=== PATIENT | male | born 1960 | race Caucasian/White ===

== ENCOUNTER 2017-04-05 21:10 | Observation (INO) | payer BC, OTHER ==
[~2017-04-05] VITALS: Ht 172.7 cm; Wt 86.0 kg
[2017-04-05 22:45] VITALS: BP 155/114; PULSE 67; TEMP 37.1; O2SAT 94; Ht 172.7 cm; Wt 86.0 kg
[2017-04-05] MEDS ORDERED: LORAZEPAM 2 MG/ML 1 ML VIAL IV PRN (23:15)
[2017-04-05] MEDS ORDERED: SODIUM CHLORIDE 0.9% 1000ML 1,000 ML IV ONE (23:15)
[2017-04-05] MEDS ORDERED: IV FLUIDS COMPLETED PRN (23:15)
[2017-04-05] MEDS ORDERED: ONDANSETRON INJ 2 MG/ML 2 ML VIAL IV PRN (23:15)
[2017-04-05] MEDS ORDERED: OXYCODONE/ACETAMINOPHEN 5-325 TAB PO PRN (23:15)
[2017-04-05] MEDS ORDERED: ACETAMINOPHEN 325 MG TAB PO PRN (23:15)
[2017-04-05] MEDS ORDERED: PATIENT'S ALLERGY INFO NEEDS ENTERED SCH (23:15)
[2017-04-05] MEDS ORDERED: LORAZEPAM INJ 0.5 MG in SYRINGE 0.75 ML IV PRN (23:30)
[2017-04-05] MEDS ORDERED: INFLUENZA VIRUS QUAD VACCINE 0.5 ML SYR IM. ONE (23:45)
[2017-04-05] MEDS ORDERED: INFLUENZA ADMINISTRATION CHARGE ONE (23:45)
[2017-04-06] MEDS ORDERED: LAMOTRIGINE PO ONE ×2 (01:00)
[2017-04-06] MEDS ORDERED: ATEN50TA8 PO (02:01)
[2017-04-06] MEDS ORDERED: LAMO150T32 PO (02:02)
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
[2017-04-06] MEDS ORDERED: LORAZEPAM INJ 1 MG in SYRINGE 0.5 ML IV PRN (02:30)
[2017-04-06 06:45] LABS: BASO % 0.3 %; BASO ABS # 0.02 K/uL (0-0.2); COMPLETE YES; EOS % 1.6 %; HEMATOCRIT 49.7 % (42-52); IG% 0.4 %; LYMPH % 17.5 %; LYMPH ABS # 1.34 K/uL (1.2-3.4); MEAN CELL VOLUME 84.1 fL (80-100); MEAN CORPUSCULAR HEMOGLOBIN 29.6 pg (25-34); MEAN CORPUSCULAR HGB CONC 35.2 g/dl (32-36); MEAN PLATELET VOLUME 9.3 fL (7.4-10.4); MONO % 8.8 %; NEUT % 71.4 %; PLATELET COUNT 210 K/uL (130-400); RED BLOOD COUNT 5.91 M/uL (4.7-6.1); WHITE BLOOD COUNT 7.64 K/uL (4.8-10.8)
[2017-04-06 06:52] LABS: INR 1.1 (0.9-1.1); PROTHROMBIN TIME (PATIENT) 11.4 SECONDS (9.0-12.0)
[2017-04-06 07:09] LABS: BUN/CREATININE RATIO 12.4 (10-20); CREATININE 1.2 mg/dl (0.60-1.40); MAGNESIUM 2.1 mg/dl (1.8-2.4); POTASSIUM 4.1 mmol/L (3.5-5.1)
[2017-04-06 07:20] LABS: THYROID STIMULATING HORMONE 1.95 uIu/ml (0.300-4.500)
[2017-04-06 08:00] VITALS: BP 151/96; PULSE 60; TEMP 36.9; O2SAT 95
[2017-04-06] MEDS: ASPIRIN 81 MG ECTAB PO SCH (08:02)
[2017-04-06] MEDS: MULTIVITAMIN TAB PO SCH (08:02)
[2017-04-06] MEDS: LAMOTRIGINE PO SCH ×4 (08:04→20:34)
[2017-04-06] MEDS: HEPARIN SOD 5000 UNIT/0.5 ML CARP SQ SCH ×2 (08:11→16:12)
[2017-04-06 08:12] LABS: URINE APPEARANCE CLEAR (CLEAR); URINE BILIRUBIN NEG (NEG); URINE COLOR YELLOW; URINE NITRITE NEG (NEG); URINE PH 6.5 (4.5-7.5); URINE SPECIFIC GRAVITY 1.015 (1.000-1.030); UROBILINOGEN NEG (NEG); ZZUR CULT IF INDIC CLEAN CATCH NO
[2017-04-06 08:16] LABS: MANUAL MICROSCOPIC REQUIRED? NO; REVIEW REQ? NO
[2017-04-06 08:38] LABS: BENZODIAZEPINE, URINE NEG (NEG); COCAINE,URINE NEG (NEG); PHENCYCLIDINE, URINE NEG (NEG)
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
--- NOTE | 2017-04-06 12:17 | DIAGNOSTIC IMAGING REPORT ---
BRAIN COMBO FOR SEIZURE CLINICAL HISTORY: 57 years-old Male presenting with seizure disorder, "spaced out" yesterday, unresponsive at the time, pain radiating down the arm, possible history of stroke. TECHNIQUE: Multisequence, multiplanar MR imaging of the brain was performed before and after the administration of intravenous contrast. IV contrast: 8.5 mL of Gadavist. COMPARISON: 03/22/2006. FINDINGS: Ventricles and sulci normal in size. Few scattered foci of T2/FLAIR hyperintensity in the subcortical white matter, nonspecific. No abnormality of the temporal lobes. No mass effect or midline shift. No restricted diffusion to suggest acute ischemia. No hemorrhage. No extra-axial fluid collection. T2 skull base flow voids preserved. No abnormal parenchymal enhancement. Bone marrow signal intensity within the calvarium within normal limits. Incidental note made of Tornwaldt cyst. IMPRESSION: 1. No acute intracranial pathology. No abnormal enhancement. 2. Few scattered foci of T2/FLAIR hyperintensity in the subcortical white matter is nonspecific and could be seen in the setting of age-related change, chronic migraines, or chronic small vessel ischemic change among other etiologies. Electronically signed by: Edmond Reynolds M.D. 04/06/2017 12:16 PM Dictated Date/Time: 04/06/2017 12:10 PM
--- NOTE | 2017-04-06 13:07 | Progress Note ---
Internal Med Progress Note Date of Service: Apr 06, 2017. Provider Documentation: SUBJECTIVE: Seen and examined at bedside Feels well No seizure activity since hospitalization Denies CP/SOB/Dizziness/Headache/Weakness OBJECTIVE: Vital Signs-as noted below Physical Exam: Vitals signs as noted above General Appearance:Moderately built and nourished, no apparent distress Head: normocephalic, Atraumatic Eyes: normal inspection, EOMI, PERRL Neck: supple, Trachea midline Respiratory/Chest: Normal breath sounds, CTA Cardiovascular: S1, S2, No murmur Abdomen/GI:Soft, Non tender, Bowel sounds present Extremities/Musculoskelatal:normal inspection, no edema Neurologic/Psych:AAOX3, grossly no focal neurological deficits Skin: normal color, warm Lab data as noted below. ASSESSMENT & PLAN: Likely Partial complex Seizures H/O seizures disorder: No seizures since many years Continue Lamictal at increased dose:175 mg BID Appreciate Neurology Input Ativan PRN MRI brain:No acute intracranial pathology EEG: pending Monitor SERGIO: Resolved Cr:1.4 >>1.2 S/P IVF H/O TIA: Continue Aspirin Hypertension: Continue home meds monitor DVT Px: Heparin SQ Code Status: Full code. PROCEDURES: MRI Brain: 1. No acute intracranial pathology. No abnormal enhancement. 2. Few scattered foci of T2/FLAIR hyperintensity in the subcortical white matter is nonspecific and could be seen in the setting of age-related change, chronic migraines, or chronic small vessel ischemic change among other etiologies. Vital Signs: Date Time Temp Pulse Resp B/P (MAP) Pulse Ox O2 Delivery O2 Flow Rate FiO2 04/06/17 15:10 36.6 60 18 137/83 (101) 93 Room Air 04/06/17 08:00 Room Air 04/06/17 08:00 36.9 60 18 151/96 (114) 95 Room Air 04/05/17 22:45 37.1 67 16 155/114 94 Room Air Lab Results: Results Past 24 Hours Test 04/05/17 23:49 04/06/17 05:45 04/06/17 06:10 Range/Units Urine Color YELLOW Urine Appearance CLEAR CLEAR Urine pH 6.5 4.5-7.5 Urine Specific [place] 1.015 1.000-1.030 Urine Protein NEG NEG Urine Glucose (UA) NEG NEG Urine Ketones NEG NEG Urine Occult Blood NEG NEG Urine Nitrite NEG NEG Urine Bilirubin NEG NEG Urine Urobilinogen NEG NEG Urine Leukocyte Esterase NEG NEG Urine Opiates Screen NEG NEG Urine Methadone, Qualitative NEG NEG Urine Barbiturates NEG NEG Urine Phencyclidine (PCP) Level NEG NEG Ur Amphetamine/Methamphetamine NEG NEG MDMA (Ecstasy) Screen NEG NEG Urine Benzodiazepines Screen NEG NEG Urine Cocaine Metabolite NEG NEG Urine Marijuana (THC) NEG NEG White Blood Count 7.64 4.8-10.8 K/uL Red Blood Count 5.91 4.7-6.1 M/uL Hemoglobin 17.5 14.0-18.0 g/dL Hematocrit 49.7 42-52 % Mean Corpuscular Volume 84.1 80-100 fL Mean Corpuscular Hemoglobin 29.6 25-34 pg Mean Corpuscular Hemoglobin Concent 35.2 32-36 g/dl Platelet Count 210 130-400 K/uL Mean Platelet Volume 9.3 7.4-10.4 fL Neutrophils (%) (Auto) 71.4 % Lymphocytes (%) (Auto) 17.5 % Monocytes (%) (Auto) 8.8 % Eosinophils (%) (Auto) 1.6 % Basophils (%) (Auto) 0.3 % Neutrophils # (Auto) 5.46 1.4-6.5 K/uL Lymphocytes # (Auto) 1.34 1.2-3.4 K/uL Monocytes # (Auto) 0.67 0.11-0.59 K/uL Eosinophils # (Auto) 0.12 0-0.5 K/uL Basophils # (Auto) 0.02 0-0.2 K/uL RDW Standard Deviation 39.6 36.4-46.3 fL RDW Coefficient of Variation 13.0 11.5-14.5 % Immature Granulocyte % (Auto) 0.4 % Immature Granulocyte # (Auto) 0.03 0.00-0.02 K/uL Prothrombin Time 11.4 9.0-12.0 SECONDS Prothromb Time International Ratio 1.1 0.9-1.1 Sodium Level 143 136-145 mmol/L Potassium Level 4.1 3.5-5.1 mmol/L Chloride Level 108 98-107 mmol/L Carbon Dioxide Level 29 21-32 mmol/L Anion Gap 6.0 3-11 mmol/L Blood Urea Nitrogen 15 7-18 mg/dl Creatinine 1.20 0.60-1.40 mg/dl Est Creatinine Clear Calc Drug Dose 70.7 ml/min Estimated GFR () 76.3 Estimated GFR (Non- 65.8 BUN/Creatinine Ratio 12.4 10-20 Random Glucose 91 70-99 mg/dl Calcium Level 9.0 8.5-10.1 mg/dl Magnesium Level 2.1 1.8-2.4 mg/dl Thyroid Stimulating Hormone (TSH) 1.950 0.300-4.500 uIu/ml
[2017-04-06 15:10] VITALS: BP 137/83; PULSE 60; TEMP 36.6; O2SAT 93
[2017-04-06 23:54] VITALS: BP 148/89; PULSE 54; TEMP 36.6; O2SAT 99
[2017-04-07] VITALS: O2SAT 99
[2017-04-07] MEDS: HEPARIN SOD 5000 UNIT/0.5 ML CARP SQ SCH ×3 (00:48→16:00)
[2017-04-07 07:28] VITALS: BP 144/87; PULSE 56; TEMP 36.6; O2SAT 98
[2017-04-07 07:41] LABS: BUN/CREATININE RATIO 12.1 (10-20); CALCIUM 9.5 mg/dl (8.5-10.1); CREATININE 1.2 mg/dl (0.60-1.40); MAGNESIUM 1.9 mg/dl (1.8-2.4); POTASSIUM 4.3 mmol/L (3.5-5.1)
[2017-04-07] MEDS: MULTIVITAMIN TAB PO SCH (07:54)
[2017-04-07] MEDS: ASPIRIN 81 MG ECTAB PO SCH (07:54)
[2017-04-07] MEDS: LAMOTRIGINE PO SCH ×2 (08:37)
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
--- NOTE | 2017-04-07 14:18 | Progress Note ---
Internal Med Progress Note Date of Service: Apr 07, 2017. Provider Documentation: SUBJECTIVE: Seen and examined at bedside Doing well No recurrence of symptoms or seizure activity since hospitalization Denies CP/SOB/Dizziness/Headache/Weakness OBJECTIVE: Vital Signs-as noted below Physical Exam: Vitals signs as noted above General Appearance:Moderately built and nourished, no apparent distress Head: normocephalic, Atraumatic Eyes: normal inspection, EOMI, PERRL Neck: supple, Trachea midline Respiratory/Chest: Normal breath sounds, CTA Cardiovascular: S1, S2, No murmur Abdomen/GI:Soft, Non tender, Bowel sounds present Extremities/Musculoskelatal:normal inspection, no edema Neurologic/Psych:AAOX3, grossly no focal neurological deficits Skin: normal color, warm Lab data as noted below. 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 PROCEDURES: MRI Brain: 1. No acute intracranial pathology. No abnormal enhancement. 2. Few scattered foci of T2/FLAIR hyperintensity in the subcortical white matter is nonspecific and could be seen in the setting of age-related change, chronic migraines, or chronic small vessel ischemic change among other etiologies. DISPOSITION: Plan to discharge home today Follow up with on 04/11/17 at 10:30AM Follow up with your Neurologist in 1 week for EEG done as outpatient NO DRIVING PERMITTED UNTIL FURTHER NOTICE Seek immediate medical attention if your symptoms reoccur or worsen Vital Signs: Date Time Temp Pulse Resp B/P (MAP) Pulse Ox O2 Delivery O2 Flow Rate FiO2 04/07/17 08:00 Room Air 04/07/17 07:28 36.6 56 18 144/87 (106) 98 Room Air 04/07/17 00:00 99 Room Air 04/06/17 23:54 36.6 54 18 148/89 (108) 99 Room Air 04/06/17 15:54 Room Air 04/06/17 15:10 36.6 60 18 137/83 (101 93 Room Air Lab Results: Results Past 24 Hours Test 04/07/17 06:22 Range/Units Sodium Level 141 136-145 mmol/L Potassium Level 4.3 3.5-5.1 mmol/L Chloride Level 106 98-107 mmol/L Carbon Dioxide Level 30 21-32 mmol/L Anion Gap 5.0 3-11 mmol/L Blood Urea Nitrogen 15 7-18 mg/dl Creatinine 1.20 0.60-1.40 mg/dl Est Creatinine Clear Calc Drug Dose 70.7 ml/min Estimated GFR () 76.3 Estimated GFR (Non- 65.8 BUN/Creatinine Ratio 12.1 10-20 Random Glucose 86 70-99 mg/dl Calcium Level 9.5 8.5-10.1 mg/dl Magnesium Level 1.9 1.8-2.4 mg/dl Hepatitis C Antibody Screen NEG NEG
[2017-04-07] MEDS ORDERED: LMC25 PO (14:22)
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
[2017-04-07 14:34] VITALS: BP 144/87; PULSE 56; TEMP 36.6; O2SAT 98
== END 2017-04-07 18:00 | disposition home or self-care (01) ==
LOC: INTOOBSV 23:10 → C.MS2W 23:10
PROVIDERS: ADMIT Internal Medicine; ATTEND Internal Medicine
DX: R40.4 Transient alteration of awareness (principal); Z86.73 Personal history of transient ischemic attack (TIA), and cerebral infarction without residual deficits; I10 Essential (primary) hypertension; F17.200 Nicotine dependence, unspecified, uncomplicated

== ENCOUNTER → 2017-04-12 | Outpatient (CLI) | payer BC ==
[~2017-04-12] MED LIST: ATEN50TA8 PO; LAMO150T32 PO; LMC25 PO
--- NOTE | 2017-04-15 11:57 | EEG Procedure Note ---
EEG Procedure Note Date of Service Apr 12, 2017. Start / End Times Start Time: 8:57 AM End Time: 9:18 AM Referring Physician Andrea Dempsey History This is a 57-year-old male with a history of epilepsy NOS and possible recent breakthrough seizure. EEG for further evaluation of seizure etiology. Pertinent home medications include Lamictal Home Medication List Scheduled Atenolol (Tenormin), 50 MG PO DAILY Lamotrigine (Lamictal), 1 TAB PO BID Lamotrigine (Lamotrigine), 1 TAB PO BID Description This is a 21 electrode EEG with a single channel dedicated to limited EKG. The electrodes were placed in accordance with the International 10-20 system. Frontal eye movement artifact during photic stimulation noted. At the start of the recording the patient was in an awake state. Background was well organized and composed of symmetric mixed alpha and beta frequencies. There was a symmetric well-formed moderate amplitude 11-12 Hz posterior dominant rhythm that was reactive to eye opening and closure. Hyperventilation was not done. Intermittent photic stimulation at various frequencies produced no abnormalities. Mild drowsiness was indicated by loss of muscle artifact and minimal slowing of the background rhythm. There was no sleep transients. Interpretation This is a normal awake and drowsy routine EEG. There was no electrographic seizures or epileptiform discharges. Clinical Correlation A normal EEG does not rule out epilepsy if there is a strong clinical suspicion.
== END | disposition home or self-care (01) ==
LOC: C.NEUR 08:45
PROVIDERS: ATTEND Psychiatry & Neurology Neurology
DX: G40.909 Epilepsy, unspecified, not intractable, without status epilepticus (principal)

== ENCOUNTER → 2017-06-13 | Outpatient (CLI) | payer BC ==
[~2017-06-13] MED LIST changes: +LAMO150T PO; -LAMO150T32 PO
--- NOTE | 2017-06-14 16:01 | EXERCISE STRESS ECHO ---
*NOTICE TO RECEIVING CONSTITUTION PARTY AGENCY This information is strictly Confidential and protected under [place] law. [place] law prohibits you from making any further disclosure of this information unless further disclosure is expressly permitted by the written consent of the person to whom it pertains or is authorized by law. A general authorization for the release of medical or other information is not sufficient for this purpose. Hospital accepts no responsibility if the information is made available to any other person, INCLUDING THE PATIENT. Interpretation Summary * Name: YASSINE SHEPHERD Study Date: 06/13/2017 09:48 AM BP: 123/92 mmHg * Patient Location: [facility] HR: 57 * : 1960 (M/d/yyyy) Gender: Male Height: 68 in * Age: 57 yrs Ethnicity: CA Weight: 195 lb * Ordering Physician: Reuben Lewis * Referring Physician: Edmond Rawls * Performed By: Kaya Metcalf RDCS * * Reason For Study: Chest Pain * BSA: 2.0 m2 * No evidence of exercise induced ischemia at 78% of the maximal age predicted target heart rate. * Heart rate response to exercise attenuated by beta chuck therapy. * Exercise capacity is above average. * Suboptimal stress test due to inadequate maximum heart rate. * -- Conclusions -- * Ejection Fraction = 60-65%. * Resting wall motion: Normal. Stress wall motion: Appropriate increase in Left ventricular systolic function and decrease in cavity size. No stress induced segmental wall motion abnormalities. * Grade I diastolic dysfunction, (abnormal relaxation pattern). * No significant valvular pathology. Procedure Details * ECHOEX, CPT #[id number] * ECHO DOPPLER, CPT #[id number] * ECHO COLOR FLOW, CPT #[id number] Left Ventricle * The left ventricle is normal in size. * There is normal left ventricular wall thickness. * Ejection Fraction = 60-65%. * Left ventricular systolic function is normal. * The left ventricular ejection fraction increases normally with stress. The left ventricular end-systolic cavity size reduces post-stress (normal response). The left ventricular wall motion with stress is normal. * Resting wall motion: Normal. Stress wall motion: Appropriate increase in Left ventricular systolic function and decrease in cavity size. No stress induced segmental wall motion abnormalities. Right Ventricle * The right ventricle is normal in size and function. Atria * The left atrial size is normal. * Right atrial size is normal. * No ASD detected; PFO is not assessed. Mitral Valve * The mitral valve is normal. * There is no mitral valve stenosis. * Significant mitral regurgitation is absent. Tricuspid Valve * The tricuspid valve is normal. * There is no tricuspid stenosis. * There is trace tricuspid regurgitation. Aortic Valve * The aortic valve is trileaflet. * No hemodynamically significant valvular aortic stenosis. * No aortic regurgitation is present. Pulmonic Valve * The pulmonic valve is not well visualized. Great Vessels * The aortic root is normal size. Pericardium * There is no pericardial effusion. Stress Parameters * The baseline ECG displays normal sinus rhythm. * Stress ECG: No ST changes. No arrhythmias. * The stress portion of this study was personally supervised by the undersigned interpreting physician. * Rest heart rate was '57' BPM. * Rest blood pressure was '123/92' * Maximum heart rate achieved was 126 bpm. * Maximum heart rate was 78 % of maximum age-predicted heart rate. * Maximum blood pressure was '198/91' * Total exercise time was '11:16' * Maximum exercise MET level achieved was '13.40' METS * Maximum treadmill speed was '4.10' miles per hour. * Maximum treadmill elevation was '16.00'% grade. * Normal blood pressure response to exercise. Left Ventricular Diastolic Function * Grade I diastolic dysfunction, (abnormal relaxation pattern). MMode 2D Measurements and Calculations IVSd 0.67 cm IVSs 1.1 cm LVIDd 5.3 cm LVIDs 3.3 cm LVPWd 0.97 cm LVPWs 1.5 cm IVS/LVPW 0.69 FS 36.3 % EDV(Teich) 132.7 ml ESV(Teich) 45.8 ml EF(Teich) 65.5 % EDV(cubed) 145.1 ml ESV(cubed) 37.6 ml EF(cubed) 74.1 % % IVS thick 57.0 % % LVPW thick 53.0 % LV mass(C)d 153.5 grams LV mass(C)dI 75.9 grams/m\S\2 LV mass(C)s 140.0 grams LV mass(C)sI 69.3 grams/m\S\2 SV(Teich) 86.9 ml SI(Teich) 43.0 ml/m\S\2 SV(cubed) 107.5 ml SI(cubed) 53.2 ml/m\S\2 Ao root diam 2.6 cm Ao root area 5.1 cm\S\2 ACS 1.7 cm LA dimension 3.6 cm LA/Ao 1.4 LVAd ap4 28.0 cm\S\2 LVLd ap4 7.3 cm EDV(MOD-sp4) 90.8 ml EDV(sp4-el) 90.7 ml LVAs ap4 16.0 cm\S\2 LVLs ap4 6.1 cm ESV(MOD-sp4) 39.0 ml ESV(sp4-el) 35.6 ml EF(MOD-sp4) 57.0 % EF(sp4-el) 60.7 % LVAd ap2 26.1 cm\S\2 LVLd ap2 7.3 cm EDV(MOD-sp2) 81.7 ml EDV(sp2-el) 78.6 ml LVAs ap2 14.9 cm\S\2 LVLs ap2 6.0 cm ESV(MOD-sp2) 32.2 ml ESV(sp2-el) 31.7 ml EF(MOD-sp2) 60.6 % EF(sp2-el) 59.6 % LVLd %diff 0.08 % EDV(MOD-bp) 86.1 ml LVLs %diff -2.29 % ESV(MOD-bp) 35.4 ml EF(MOD-bp) 58.8 % SV(MOD-sp4) 51.7 ml SI(MOD-sp4) 25.6 ml/m\S\2 SV(MOD-sp2) 49.5 ml SI(MOD-sp2) 24.5 ml/m\S\2 SV(MOD-bp) 50.6 ml SI(MOD-bp) 25.0 ml/m\S\2 SV(sp4-el) 55.1 ml SI(sp4-el) 27.2 ml/m\S\2 SV(sp2-el) 46.8 ml SI(sp2-el) 23.2 ml/m\S\2 Doppler Measurements and Calculations MV E max rita 63.1 cm/sec MV A max rita 58.7 cm/sec MV E/A 1.1 MV dec time 0.25 sec Ao V2 max 146.0 cm/sec Ao max PG 8.5 mmHg Ao max PG (full) 3.6 mmHg LV V1 max PG 4.9 mmHg LV V1 max 110.6 cm/sec PA V2 max 142.4 cm/sec PA max PG 8.2 mmHg
== END | disposition home or self-care (01) ==
LOC: C.CPL 09:39
PROVIDERS: ATTEND Family Medicine
DX: R07.9 Chest pain, unspecified (principal); I10 Essential (primary) hypertension; Z82.49 Family history of ischemic heart disease and other diseases of the circulatory system; F17.200 Nicotine dependence, unspecified, uncomplicated

== ENCOUNTER 2017-09-19 08:29 | Emergency (ER) | payer BC ==
[~2017-09-19] VITALS: Ht 172.7 cm; Wt 91.7 kg
[2017-09-19 08:50] VITALS: TEMP 36.8; Ht 172.7 cm; Wt 91.7 kg
[2017-09-19] MEDS ORDERED: IBUPROFEN 600 MG TAB PO STA (09:25)
[2017-09-19] MEDS ORDERED: ACETAMINOPHEN 500 MG TAB PO STA (09:25)
[2017-09-19] MEDS ORDERED: LAMO200T35 PO (09:57)
[2017-09-19] MEDS ORDERED: ATEN-175 PO (09:57)
[2017-09-19] MEDS ORDERED: MULT-506 PO (09:59)
[2017-09-19] MEDS ORDERED: ASPI81TA28 PO (09:59)
--- NOTE | 2017-09-19 10:45 | DIAGNOSTIC IMAGING REPORT ---
RIGHT UPPER EXTREMITY VENOUS DOPPLER ULTRASOUND CLINICAL HISTORY: Right arm swelling. COMPARISON STUDY: No previous studies for comparison. FINDINGS: The right internal jugular, subclavian, cephalic, brachial, basilic, radial and ulnar veins are patent. IMPRESSION: No deep venous thrombus within the right upper extremity. Electronically signed by: Rusty Pérez M.D. 09/19/2017 10:43 AM Dictated Date/Time: 09/19/2017 10:39 AM
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
--- NOTE | 2017-09-19 11:05 | DIAGNOSTIC IMAGING REPORT ---
C-SPINE ROUTINE 4 OR 5 VIEWS CLINICAL HISTORY: 57 years-old Male presenting with right arm tingling, poss pinched nerve. TECHNIQUE: Frontal, bilateral oblique, lateral, and open-mouth odontoid views of the cervical spine were obtained. COMPARISON: None. FINDINGS: Straightening of normal cervical lordosis likely positional. Vertebral bodies maintain normal height and alignment. Intervertebral disc height loss at C3-4 through C5-6. Disc osteophyte complexes noted from C3-4 through C6-7. Minimal posterior bony spurring may be present at C5-6. No radiographic evidence of fracture or subluxation. Likely degenerative related calcification within the soft tissues posterior to the C5 spinous process. Osseous neural foraminal narrowing may be present at C5-6 and C6-7 on the right and C3-4 through C5-6 on the left. Lateral masses of C1 articulate normally with C2. Normal predental interval. No prevertebral soft tissue swelling. IMPRESSION: 1. Multilevel degenerative changes. Osseous neural foraminal narrowing suggested on the right at C5-6 and C6-7 and on the left from C3-4 through C5-6. 2. No radiographic evidence of acute osseous injury. Electronically signed by: Edmond Reynolds M.D. 09/19/2017 11:03 AM Dictated Date/Time: 09/19/2017 11:01 AM
[2017-09-19] MEDS ORDERED: METH4PAK PO (11:43)
[2017-09-19] MEDS ORDERED: IBUP600T44 PO (11:43)
[2017-09-19 12:01] VITALS: BP 149/102; PULSE 50; O2SAT 96
== END 2017-09-19 12:12 | disposition home or self-care (01) ==
LOC: C.EDB 08:30 → C.EDA 12:12
DX: M79.601 Pain in right arm (principal); R20.0 Anesthesia of skin; I10 Essential (primary) hypertension; R56.9 Unspecified convulsions; Z79.82 Long term (current) use of aspirin; Z88.8 Allergy status to other drugs, medicaments and biological substances

== ENCOUNTER 2017-11-22 02:57 | Emergency (ER) | payer BC ==
[~2017-11-22] VITALS: Ht 172.7 cm; Wt 88.2 kg
[~2017-11-22 02:57] MED LIST changes: +ASPI81TA28 PO; +ATEN-175 PO; -ATEN50TA8 PO; +IBUP600T44 PO; -LAMO150T PO; +LAMO200T35 PO; -LMC25 PO; +MULT-506 PO
[2017-11-22 03:03] VITALS: TEMP 36.7; Ht 172.7 cm; Wt 88.2 kg
[2017-11-22] MEDS ORDERED: ALUMINUM/MAGNESIUM SUSP 30 ML UDC PO STA (03:11)
[2017-11-22] MEDS ORDERED: LIDOCAINE HCL 2% VISC SOLN 20 ML UDC PO STA (03:11)
[2017-11-22 03:54] LABS: BASO % 0.8 %; BASO ABS # 0.06 K/uL (0-0.2); EOS ABS # 0.16 K/uL (0-0.5); HEMATOCRIT 48.3 % (42-52); HEMOGLOBIN 18.1 g/dL (14.0-18.0); IG# 0.03 K/uL (0.00-0.02); LYMPH % 17.8 %; LYMPH ABS # 1.42 K/uL (1.2-3.4); MEAN CELL VOLUME 84.4 fL (80-100); MEAN CORPUSCULAR HEMOGLOBIN 31.6 pg (25-34); MEAN CORPUSCULAR HGB CONC 37.5 g/dl (32-36); MEAN PLATELET VOLUME 8.8 fL (7.4-10.4); MONO % 9.4 %; MONO ABS # 0.75 K/uL (0.11-0.59); NEUT % 69.6 %; NEUT ABS # 5.56 K/uL (1.4-6.5); PLATELET COUNT 173 K/uL (130-400); RED CELL DISTRIBUTION WIDTH CV 13.1 % (11.5-14.5); RED CELL DISTRIBUTION WIDTH SD 39.5 fL (36.4-46.3); WHITE BLOOD COUNT 7.98 K/uL (4.8-10.8)
[2017-11-22 04:15] LABS: ALBUMIN 4.1 gm/dl (3.4-5.0); CALCIUM 8.8 mg/dl (8.5-10.1); CREATININE 1.21 mg/dl (0.60-1.40); POTASSIUM 3.8 mmol/L (3.5-5.1); TOTAL PROTEIN 7.4 gm/dl (6.4-8.2)
[2017-11-22] MEDS ORDERED: PANTOprazole SOD 40 MG TAB PO STA (04:51)
--- NOTE | 2017-11-22 04:51 | EMERGENCY ROOM VISIT NOTE ---
History First contact with patient: 03:06 Chief Complaint: ABDOMINAL PAIN Stated Complaint: ABD PAIN Nursing Triage Summary: pt c/o mid abdominal pain. pain for 1 month. reports pain is intermittent. worsened tonight after eating [employer]. pt has appt with PCP after but pt states pain was too bad to wait. History of Present Illness The patient is a 57 year old male who presents to the Emergency Room with complaints of upper abdominal pain that has been intermittent for the past month it got much worse tonight. Patient had [employer] tonight for dinner. Patient states nothing makes his pain better or worse. He describes the pain as discomfort, ranging in severity 8 out of 10 throughout the upper abdomen. Patient denies chest pain, dyspnea, fever, chills, nausea, vomiting, diarrhea, back pain, flank pain, urinary symptoms. He is tolerating p.o. fluids and food. Normal colonoscopy 1 year ago. He still has gallbladder. Review of Systems An 10 system review of systems was completed with positives and pertinent negatives listed in the HPI. Past Medical/Surgical History Medical Problems: (1) HTN (hypertension) (2) Seizure Social History Smoking Status: Never Smoker Drug Use: none Marital Status: Housing Status: lives with family Current/Historical Medications Scheduled Aspirin (Aspirin Ec), 81 MG PO QAM Atenolol (Tenormin), 100 MG PO QAM Lamotrigine (Lamictal), 200 MG PO BID17 Multivitamin (Multivitamin), 1 TAB PO QAM Scheduled PRN Ibuprofen (Motrin), 600 MG PO TID PRN for Pain Physical Exam Vital Signs Date Time Temp Pulse Resp B/P (MAP) Pulse Ox O2 Delivery O2 Flow Rate FiO2 11/22/17 04:33 57 11/22/17 04:30 57 18 145/96 97 Room Air 11/22/17 03:03 36.7 59 20 153/98 97 Room Air Physical Exam VITALS: Vitals are noted on the nurse's note and reviewed by myself. Vital signs hypertensive. GENERAL: Pleasant male, in no acute distress, nondiaphoretic, well-developed well-nourished. SKIN: The skin was without rashes, erythema, edema, or bruising. There is no tenting of the skin. Capillary reflex less than 2 seconds. HEAD: Normocephalic atraumatic. EARS: External auditory canals clear, tympanic membranes pearly palencia without erythema or effusion bilaterally. EYES: Pupils equal round and reactive to light and accommodation. Conjunctivae without injection, sclerae without icterus. Extraocular movements intact. NOSE: Patent, turbinates without inflammation or discharge. MOUTH: Mucous membranes moist. Pharynx without erythema or exudate. Uvula midline. Airway patent. Tongue does not deviate. NECK: Supple without nuchal rigidity. No lymphadenopathy. No thyromegaly. Cervical spine is nontender. No JVD. HEART: Regular rate and rhythm without murmurs gallops or rubs. LUNGS: Clear to auscultation bilaterally without wheezes, rales or rhonchi. No retractions or accessory muscle use. ABDOMEN: Positive bowel sounds x 4. Normal tympanic percussion. Soft, tender to palpation upper abdomen, without masses or organomegaly. No guarding or rebound tenderness. No CVA tenderness MUSCULOSKELETAL: No muscle atrophy, erythema, or edema noted. NEURO: Patient was alert and oriented to person place and time. Normal sensation to light and sharp touch. No focal neurological deficits. Medical Decision & Procedures Laboratory Results 11/22/17 03:40 Red Blood Count 5.72, Mean Corpuscular Volume 84.4, Mean Corpuscular Hemoglobin 31.6, Mean Corpuscular Hemoglobin Concent 37.5, Mean Platelet Volume 8.8, Neutrophils (%) (Auto) 69.6, Lymphocytes (%) (Auto) 17.8, Monocytes (%) (Auto) 9.4, Eosinophils (%) (Auto) 2.0, Basophils (%) (Auto) 0.8, Neutrophils # (Auto) 5.56, Lymphocytes # (Auto) 1.42, Monocytes # (Auto) 0.75, Eosinophils # (Auto) 0.16, Basophils # (Auto) 0.06 11/22/17 03:40 Test 11/22/17 03:40 11/22/17 03:46 White Blood Count 7.98 K/uL (4.8-10.8) Red Blood Count 5.72 M/uL (4.7-6.1) Hemoglobin 18.1 g/dL (14.0-18.0) Hematocrit 48.3 % (42-52) Mean Corpuscular Volume 84.4 fL (80-100) Mean Corpuscular Hemoglobin 31.6 pg (25-34) Mean Corpuscular Hemoglobin Concent 37.5 g/dl (32-36) Platelet Count 173 K/uL (130-400) Mean Platelet Volume 8.8 fL (7.4-10.4) Neutrophils (%) (Auto) 69.6 % Lymphocytes (%) (Auto) 17.8 % Monocytes (%) (Auto) 9.4 % Eosinophils (%) (Auto) 2.0 % Basophils (%) (Auto) 0.8 % Neutrophils # (Auto) 5.56 K/uL (1.4-6.5) Lymphocytes # (Auto) 1.42 K/uL (1.2-3.4) Monocytes # (Auto) 0.75 K/uL (0.11-0.59) Eosinophils # (Auto) 0.16 K/uL (0-0.5) Basophils # (Auto) 0.06 K/uL (0-0.2) RDW Standard Deviation 39.5 fL (36.4-46.3) RDW Coefficient of Variation 13.1 % (11.5-14.5) Immature Granulocyte % (Auto) 0.4 % Immature Granulocyte # (Auto) 0.03 K/uL (0.00-0.02) Anion Gap 6.0 mmol/L (3-11) Est Creatinine Clear Calc Drug Dose 70.9 ml/min Estimated GFR () 75.5 Estimated GFR (Non- 65.1 BUN/Creatinine Ratio 11.4 (10-20) Calcium Level 8.8 mg/dl (8.5-10.1) Total Bilirubin 0.8 mg/dl (0.2-1) Direct Bilirubin 0.2 mg/dl (0-0.2) Aspartate Amino Transf (AST/SGOT) 24 U/L (15-37) Alanine Aminotransferase (ALT/SGPT) 45 U/L (12-78) Alkaline Phosphatase 79 U/L (45-117) Total Protein 7.4 gm/dl (6.4-8.2) Albumin 4.1 gm/dl (3.4-5.0) Lipase 135 U/L (73-393) Bedside Troponin I < 0.030 ng/ml (0-0.045) Medications Administered Medications (Trade) Dose Ordered Sig/Skip Route Start Time Stop Time Status Last Admin Dose Admin Lidocaine HCl (Viscous Lidocaine 2% Soln) 10 ml NOW STAT PO 11/22/17 03:11 11/22/17 03:13 DC 11/22/17 03:23 10 ML Al Hydroxide/Mg Hydroxide (Maalox Susp) 30 ml NOW STAT PO 11/22/17 03:11 11/22/17 03:13 DC 11/22/17 03:23 30 ML ED Course Prior records/ancillary studies reviewed. Triage Nursing notes reviewed. Additional history obtained from family. The patient's history was concerning for abdominal pain. Differential diagnosis: Etiologies such as appendicitis, cardiac, diverticulitis, PUD, biliary pathology , UTI, pancreatitis, obstruction, mesenteric ischemia, aortic pathology, infections, inflammatory bowel disease, renal colic, as well as others were entertained. Physical examination findings: As above. ER treatment provided: GI cocktail On reassessment the patient felt better. Diagnostics interpreted by me: ECG: Normal sinus, normal intervals, no acute ST-T wave changes, rate of 57. Impression sinus bradycardia interpreted by myself The labs revealed negative troponin. Stable H&H. No leukocytosis. Normal LFTs Imaging studies: US RUQ: Pancreas not well visualized due to shadowing from bowel gas. Liver measures 18.3 cm and demonstrates diffusely increased echotexture suggestive of fatty infiltration. Right kidney without hydronephrosis. Gallbladder is contracted. No cholelithiasis or current evidence to suggest acute cholecystitis. Echogenic focus in the anterior gallbladder wall with comet tail artifact. Possibly representing a cholesterol crystal related to adenomyomatosis. Common bile duct normal diameter. Radiologist: Roman Carrillo, DO Chest x-ray no acute consolidation, pneumothorax or free of my interpretation Exam and history seem consistent with gastritis versus biliary colic. Patient was neurovascularly and neurologically intact. He was well-appearing. Patient was started on Protonix. He is advised to avoid fatty foods and acidic foods until symptoms resolve. He was advised to get an outpatient HIDA scan for further workup on his gallbladder. Patient does not have acute abdomen on exam. He is well-appearing. He is tolerating fluids. He was advised to follow -up family care in a few days here in the ER sooner for abdominal pain, fevers, vomiting, worsening signs or symptoms or as needed.By the evaluation outlined above emergent etiologies such as appendicitis, diverticulitis, PUD, UTI, pancreatitis, obstruction, mesenteric ischemia, aortic pathology, infections, inflammatory bowel disease, renal colic, as well as others were deemed relatively unlikely. The pt informed about the findings as listed above. All questions were answered and pleased with the treatment. Return instructions were outlined and the patient was discharged in stable condition. Outpatient prescription management: Protonix Referral: The patient was referred back to their primary care physician for follow-up in 2 to 3 days for a recheck of the current condition. Case reviewed with my attending The chart was completed utilizing [employer] voice recognition software. Grammatical errors, random word insertions, pronoun errors, and incomplete sentences are an occassional consequence of this system due to software limitations, ambient noise, and hardware issues. Any formal questions or concerns about the content, text, or information contained within the body of this dictation should be directly addressed to the physician assistant import manager for clarification. Medical Decision As above Medication Reconcilliation Current Medication List: was personally reviewed by me Blood Pressure Screening Blood pressure disposition: Referred to PCP Impression Primary Impression: Upper abdominal pain Departure Information Dispostion Home / Self-Care Condition GOOD Referrals Edmond Rawls M.D. (PCP) Patient Instructions My [facility] Additional Instructions Protonix 40 m tablet daily for next 2 weeks. Take this on an empty stomach. Try Maalox or Zantac for breakthrough symptoms for reflux. Avoid large meals. Avoid acidic foods. Avoid fatty foods until your symptoms resolve. Rest and drink plenty of fluids as tolerated. Continue current medications. Recommend outpatient HIDA scan with the family care doctor for further workup on your gallbladder. Avoid strenuous activities and anything that worsens your pain. Resume normal activities once your symptoms resolve. Return to the ER immediately for worsening or persistent chest pain, abdominal pain, black or blood in your stools, vomiting, fevers, chest pains, difficulty breathing, worsening of your condition, or as needed. Follow up with your primary physician in 2-3 days for a recheck of your current condition.
[2017-11-22] MEDS ORDERED: PANT40TA PO (04:52)
[2017-11-22 05:00] VITALS: BP 133/91; PULSE 60; O2SAT 97
--- NOTE | 2017-11-22 06:46 | DIAGNOSTIC IMAGING REPORT ---
CHEST ONE VIEW PORTABLE HISTORY: 57 years-old Male CHEST PAIN acute atypical chest pain COMPARISON: None available TECHNIQUE: Portable AP view of the chest FINDINGS: Cardiomediastinal and hilar silhouettes are within normal limits. There is no pneumothorax, pleural effusion, focal airspace consolidation or overt pulmonary edema. Bones of the chest appear grossly intact. There are degenerative changes of the shoulders and spine. IMPRESSION: No acute process. The above report was generated using voice recognition software. It may contain grammatical, syntax or spelling errors. Electronically signed by: Hiren Day M.D. 11/22/2017 6:45 AM Dictated Date/Time: 11/22/2017 6:44 AM
--- NOTE | 2017-11-22 07:34 | DIAGNOSTIC IMAGING REPORT ---
ABDOMINAL ULTRASOUND, RIGHT UPPER QUADRANT HISTORY: upper abd pain, ? GB. COMPARISON: None. FINDINGS: Pancreas: The pancreatic head and tail are obscured by overlying bowel gas. The remaining portions of the pancreas are within normal limits. Liver: The liver is echogenic consistent with fatty change. Gallbladder: The gallbladder is contracted. No gallbladder wall thickening or gallstones. Punctate echogenic focus within the fundus of the gallbladder suggestive of a cholesterol crystal. CBD: 3 mm. Right kidney: No hydronephrosis. IMPRESSION: 1. Hepatic steatosis. 2. No gallbladder wall thickening. No gallstones. Electronically signed by: Kevin Adame M.D. 11/22/2017 7:32 AM Dictated Date/Time: 11/22/2017 7:31 AM
== END 2017-11-22 05:05 | disposition home or self-care (01) ==
LOC: C.EDB 02:59
DX: R10.10 Upper abdominal pain, unspecified (principal); I10 Essential (primary) hypertension; R56.9 Unspecified convulsions

== ENCOUNTER 2023-02-14 03:52 | Observation (INO) ==
--- NOTE | 2023-02-14 04:16 | Emergency Department Note ---
History of Present Illness General Chief complaint: Chest Pain Time Seen by Provider: 02/14/23 03:58 Source: patient, family ( was at the bedside), EMS (I discussed at length with the tag maker when the patient was brought), RN notes reviewed and old records reviewed (I have reviewed the notes and the EKG from the prehospital tag maker. Stress test 04/14/18) Mode of arrival: EMS Limitations: no limitations History of Present Illness This patient is 63 male who comes in after having chest pain. He said occurred around 11:00 at night he said he was watching TV just had a vague nagging pain it apparently subsided when the EMS arrived he was worried his blood pressure was a little high but besides that he feels fine. There is no radiation. Nothing made it better or worse it was not pleuritic there is no pain with movement he has noted no fall or trauma no fever chills or cough no shortness of breath no nausea vomiting or diaphoresis no recent illness. He has some chronic pain in his legs due to a disc but no swelling. No diaphoresis. He tells me he does have a history of a silent heart attack but has never had any stents or bypass Home Medications Medication Instructions Recorded Confirmed Type calcium carbonate 500 mg-vitamin 1 tab PO DAILY 04/13/18 11/19/22 History D3 10 mcg (400 unit) tablet (Calcium 500 + D) aspirin 81 mg tablet,delayed 81 mg PO DAILY 07/20/19 11/19/22 History release atenolol 100 mg tablet 50 mg PO DAILY 07/20/22 11/19/22 History losartan 25 mg tablet 25 mg PO DAILY 07/20/22 11/19/22 History multivitamin with minerals 1 tab PO DAILY 07/20/22 11/19/22 History omega-3 fatty acids 1,000 mg 1,000 mg PO DAILY 07/20/22 11/19/22 History capsule pantoprazole 40 mg tablet,delayed 40 mg PO DAILYBB 07/20/22 11/19/22 History release tamsulosin 0.4 mg capsule 0.4 mg PO QAM 07/20/22 11/19/22 History lamotrigine 25 mg tablet 25 mg PO BID #180 tabs 07/26/22 11/19/22 Rx lamotrigine 200 mg tablet 200 mg PO BID 90 days #180 tabs 09/05/22 11/19/22 Rx Allergies Allergy/AdvReac Type Severity Reaction Status Date / Time brompheniramine AdvReac Intermediate HYPER--DIMETAPP Verified 11/19/22 10:50 COLD MEDICINE Past Med/Surg History Medical History (Updated 02/14/23 @ 05:21 by Andrea Michaels MD) Complex partial seizure History of TIA (transient ischemic attack) HTN (hypertension) Surgical History No history of previous surgery Family History Mother No pertinent family history Father No pertinent family history Social History Smoking Status: Never smoker Hx Alcohol Use: No Hx Substance Use: No Preferred Language: Macanese Communication Ability: Effective Selector Packer Required: No Beliefs That Will Affect Care: None Current Living Situation: Spouse Feels Safe at Home: Yes Assistive Devices: Glasses Immunizations: Past medical historydenies diabetes he does have hypertension Family historyhypertension Social historyhe does not smoke or drink or use drugs Review of Systems A total of 10 systems reviewed and were otherwise negative Physical Exam Vital Signs Vital Signs - 24 hr 02/14/23 03:59 02/14/23 03:59 02/14/23 03:59 Temperature 36.9 C Temperature Source Oral Pulse Rate 56 L 54 L Pulse Rhythm Regular Pulse Strength Normal Respiratory Rate 18 Respiratory Effort / Characteristics Non-Labored Spontaneous Respiratory Depth Normal Respiratory Pattern Regular Blood Pressure 158/119 H Blood Pressure Mean 132 Pulse Oximetry 94 Oxygen Delivery Method Room Air Room Air Sepsis Recent Fever Within 48 Hours No Sepsis New/Unexplained Change in Mental Status N/A Sepsis Action Taken by Nursing No Action Required General: Well developed well nourished middle-age male who appears not ill and in no acute distress, breathing comfortably on room air. Normal speech. At present denies chest pain or any other symptoms HEENT: Normal cephalic atraumatic. Pupils are equal round and reactive to light. Extraocular movements are intact. Oropharynx is pink with moist mucous membranes. No swelling of the mouth lips or tongue. Neck: Supple with a midline trachea. No meningeal signs or stiffness, no JVD or bruits. No Stridor. Chest: Clear to auscultation bilaterally. No wheezes or rhonchi. No increased work of breathing. Not reproducibly tender Heart: Regular rate and rhythm without murmurs or gallops. Abdomen: Soft nontender, nondistended without rebound guarding or rigidity. Extremities: No cyanosis clubbing or edema. No calf tenderness or assymetry Spine/Back. Non tender to palpation. No CVA tenderness Skin: Good turgor without rashes. Neurologic exam: Cranial nerves two through 12 are intact. Motor and sensation are intact and symmetrical throughout. Medical Decision Making Differential Diagnosis Acute coronary syndrome, arrhythmia, hypertension, electrolyte or metabolic abnormality, muscle skeletal, GERD, anxiety, Medical Records Attestation: I reviewed the patient's medical records. Home Medications Current Medication List: was personally reviewed by me Laboratory Data Attestation: I reviewed the patient's lab results. 02/14/23 04:00 02/14/23 04:00 Lab Results 02/14/23 02/14/23 02/14/23 Range/Units 04:00 04:00 04:00 WBC 6.95 (4.8-10.8) K/ul RBC 5.12 (4.70-6.10) M/uL Hgb 16.2 (14.0-18.0) g/dl Hct 43.1 (42.0-52.0) % MCV 84.2 (80.0-100.0) fL MCH 31.6 (25.0-34.0) pg MCHC 37.6 H (32.0-36.0) g/dL RDW Std Deviation 37.5 (36.4-46.3) fL RDW Coeff of [place] 12.4 (11.5-14.5) % Plt Count 201 (130-400) K/uL MPV 9.1 L (9.4-12.4) fL Immature Gran % (Auto) 0.7 % Neut % (Auto) 62.5 % Lymph % (Auto) 22.7 % [place] % (Auto) 11.2 % Eos % (Auto) 2.0 % Baso % (Auto) 0.9 % Neut # (Auto) 4.34 (1.40-6.50) K/uL Lymph # (Auto) 1.58 (1.2-3.4) K/uL [place] # (Auto) 0.78 H (0.11-0.59) K/uL Eos # (Auto) 0.14 (0-0.50) K/uL Baso # (Auto) 0.06 (0-0.2) K/uL Immature Gran # (Auto) 0.05 (0.01-0.20) K/uL PT 11.0 (9.0-12.0) Seconds INR 1.0 (0.9-1.1) APTT 26.8 (21.0-31.0) Seconds PTT Ratio 1.0 Sodium 139 (136-145) mmol/L Potassium 3.6 (3.5-5.1) mmol/L Chloride 107 (98-107) mmol/L Carbon Dioxide 26 (21-32) mmol/L Anion Gap 6 (3-11) BUN 21 (6-23) mg/dl Creatinine 1.01 (0.6-1.4) mg/dl Est Cr Clr Drug Dosing 78.5 ml/min Est GFR ( Amer) 90.0 ml/min Est GFR (Non-Af Amer) 77.7 ml/min BUN/Creatinine Ratio 20.8 H (10-20) Glucose 114 H (70-99(Fasting)) mg/dl Calcium 9.3 (8.6-10.3) mg/dl Total Bilirubin 0.6 (0.2-1.0) mg/dl AST 26 (13-39) U/L ALT 36 (7-52) U/L Alkaline Phosphatase 69 (34-104) U/L Troponin I High Sens 4.9 (0-20) pg/ml Total Protein 6.5 (6.0-8.3) gm/dl Albumin 4.5 (3.4-5.0) gm/dl Globulin 2.0 L (2.5-4.0) gm/dl Albumin/Globulin Ratio 2.3 H (0.9-2) Lipase 21 (11-82) U/L Imaging Data Attestation: I personally reviewed and interpreted this imaging study as follows: My Impression: Chest x-rayno acute infiltrate, failure, pneumothorax seen ECG Data Attestation: I personally reviewed and interpreted this ECG as follows: Indication: + chest pain Rate (beats per minute): 54 Rhythm: + sinus bradycardia ECG Intervals/blocks: + Normal QRS, + Normal QT and + Normal [place] ECG [place]: + Normal ECG ST segments: + Normal ST segments ECG Findings: no PACs or no PVCs Comparison ECG Date: from (07/20/22) Change: no significant change MDM Narrative This patient comes in as scribed above he had episode of vague chest pain he is feeling better at present he did receive 4 baby aspirin's on route. His EKG both here and on route appear nonischemic I did look at the tag maker strips as well. IV access was established. EKG was obtained .chest x-ray was obtained he was reassessed frequently was placed in room A2 on a monitor technician. His initial blood work was unremarkable. He has no white count or fever to suggest infection. No significant anemia. No significant electrolyte or metabolic abnormalities. His troponin was not elevated. I did review his old records he had a negative stress test in 2018. His said he had a silent heart attack them but I cannot find any documentation that he actually had a heart attack. He has remained stable. Chest x-ray shows no acute infiltrate, failure, pneumothorax. I discussed his findings at length with the patient and his . He does have cardiac risk factors and I will admit/observe him for further treatment evaluation of discussed case with Dr. Mcneill who will see him in ER for these measures. Continuous cardiac monitoring: Orders placed in EMR for continuous cardiac monitoring: Upon my evaluation patient noted to be in sinus bradycardia with a rate of 60 Impression & Plan Chest pain, Bradycardia, sinus, Hypertension, History of TIA (transient ischemic attack) Discharge Plan Visit Data Chief Complaint: Chest Pain ED Provider: Andrea Michaels Discharge Problem: Chest pain, Bradycardia, sinus, Hypertension, History of TIA (transient ischemic attack) Forms Stand Alone Forms: My [facility] Prescriptions Prescriptions: No Action lamotrigine 25 mg tablet 25 mg PO BID Qty: 180 1RF Rx Instructions: TOTAL DOSE 225 MG--TAKES WITH 200 MG TAB. lamotrigine 200 mg tablet 200 mg PO BID 90 Days Qty: 180 1RF Rx Instructions: TOTAL DOSE 225 MG--TAKES WITH 25 MG TAB. calcium carbonate-vitamin D3 [Calcium 500 + D] 500 mg(1,250mg) -400 unit Tablet 1 tab PO DAILY aspirin 81 mg tablet,delayed release (DR/EC) 81 mg PO DAILY omega-3 fatty acids 1,000 mg Capsule 1,000 mg PO DAILY atenolol 100 mg tablet 50 mg PO DAILY tamsulosin 0.4 mg capsule 0.4 mg PO QAM pantoprazole 40 mg tablet,delayed release (DR/EC) 40 mg PO DAILYBB losartan 25 mg tablet 25 mg PO DAILY Men's One Daily Tablet 1 tab PO DAILY Referrals Referrals: Edmond Rawls MD [Primary Care Provider] -
[2023-02-14 04:29] LABS: Albumin Globulin Ratio 2.3 (0.9-2); Albumin Level 4.5 gm/dl (3.4-5.0); BUN Creatinine Ratio 20.8 (10-20); Basophils # (auto) 0.06 K/uL (0-0.2); Basophils % (auto) 0.9 %; Bilirubin,Total 0.6 mg/dl (0.2-1.0); Calcium 9.3 mg/dl (8.6-10.3); Creatinine Clr Calc Pharmacy 78.5 ml/min; Eosinophils # (auto) 0.14 K/uL (0-0.50); Est GFR (Non-African American) 77.7 ml/min; Hematocrit (blood only) 43.1 % (42.0-52.0); Hemoglobin 16.2 g/dl (14.0-18.0); Immature Granulocytes # (auto) 0.05 K/uL (0.01-0.20); Immature Granulocytes % (auto) 0.7 %; Lymphocytes # (auto) 1.58 K/uL (1.2-3.4); Lymphocytes % (auto) 22.7 %; Mean Corpuscular Hemoglobin 31.6 pg (25.0-34.0); Mean Corpuscular Hgb Conc 37.6 g/dL (32.0-36.0); Mean Corpuscular Volume 84.2 fL (80.0-100.0); Mean Platelet Volume 9.1 fL (9.4-12.4); Monocytes # (auto) 0.78 K/uL (0.11-0.59); Monocytes % (auto) 11.2 %; Neutrophils # (auto) 4.34 K/uL (1.40-6.50); Neutrophils % (auto) 62.5 %; Platelet Count 201 K/uL (130-400); Potassium 3.6 mmol/L (3.5-5.1); RDW Coefficient of Variation 12.4 % (11.5-14.5); RDW Standard Deviation 37.5 fL (36.4-46.3); Red Blood Count 5.12 M/uL (4.70-6.10); Total Protein 6.5 gm/dl (6.0-8.3); White Blood Count 6.95 K/ul (4.8-10.8)
[2023-02-14 04:35] LABS: Troponin I High Sensitivity 4.9 pg/ml (0-20)
[2023-02-14 04:48] LABS: Partial Thromboplastin Time 26.8 Seconds (21.0-31.0)
[2023-02-14] MEDS ORDERED: ACETAMINOPHEN 325 MG TAB PO STA (05:49)
[2023-02-14] MEDS ORDERED: LOSARTAN POTASSIUM 50 MG TAB PO STA (05:49)
--- NOTE | 2023-02-14 05:51 | History & Physical Report ---
Date of Service February 14, 2023 Assessment & Plan (1) Chest pain: Plan: Possibly from uncontrolled hypertension. hx TIA complex partial seizure as per records, stable on regimen hx NAFLD Lyme disease status post treatment hx BPH, stable on regimen Hyperglycemia rule out DM past tobacco abuse OBS PCU Titrate home BP meds Check TTE May need Cardiology eval Check hemoglobin A1c DVT prophylaxis. Lovenox subcu Full code Patient requesting updates from providers. Ms. Marine Chilel, contact #[phone]. Text document was generated using [employer] voice recognition software. It may contain grammatical or spelling errors. Kindly contact undersigned for clarification of any documentation item in question. History of Present Illness Chief Complaint: Left-sided chest pain Primary Care Provider: Edmond Rawls MD History obtained from patient, family, and records. Medical history significant for HTN, TIA, complex partial seizure as per records, NAFLD, Lyme disease status post treatment, BPH, past tobacco abuse. Last confinement April 2018 for chest pain. No inducible ischemia on exercise stress test. 2 days ago, patient noted achy left-sided chest pain without radiation or shortness of breath symptoms. No cough symptoms. Patient compliant with home medications. No unusual stress. Achy headache symptoms. SBP 180s at home which is unusual for him as per . EMS called to patient's home. SBP noted to be 170s. Patient given aspirin. Patient currently chest pain-free. Medical History as above Surgical History : Tonsillectomy Family History : Melanoma, prostate cancer, DM, stroke Personal/Social history : Non-smoker, no EtOH intake, retired [employer] employee Allergies Allergy/AdvReac Type Severity Reaction Status Date / Time brompheniramine AdvReac Intermediate HYPER--DIMETAPP Verified 11/19/22 10:50 COLD MEDICINE Home Medications Medication Instructions Recorded Confirmed Type calcium carbonate 500 mg-vitamin 1 tab PO DAILY 04/13/18 02/14/23 History D3 10 mcg (400 unit) tablet (Calcium 500 + D) aspirin 81 mg tablet,delayed 81 mg PO DAILY 07/20/19 02/14/23 History release atenolol 100 mg tablet 50 mg PO DAILY 07/20/22 02/14/23 History losartan 25 mg tablet 50 mg PO DAILY 07/20/22 02/14/23 History multivitamin with minerals 1 tab PO DAILY 07/20/22 02/14/23 History pantoprazole 40 mg tablet,delayed 40 mg PO DAILYBB 07/20/22 02/14/23 History release tamsulosin 0.4 mg capsule 0.4 mg PO QAM 07/20/22 02/14/23 History lamotrigine 25 mg tablet 25 mg PO BID #180 tabs 07/26/22 02/14/23 Rx lamotrigine 200 mg tablet 200 mg PO BID 90 days #180 tabs 09/05/22 02/14/23 Rx finasteride 5 mg tablet 5 mg PO DAILY 02/14/23 02/14/23 History gabapentin 300 mg capsule 300 mg PO TID 02/14/23 02/14/23 History Past Med/Surg History Medical History (Updated 02/14/23 @ 05:21 by Andrea Michaels MD) Complex partial seizure History of TIA (transient ischemic attack) HTN (hypertension) Surgical History No history of previous surgery Family History Mother No pertinent family history Father No pertinent family history Social History Smoking Status: Never smoker Hx Alcohol Use: No Hx Substance Use: No Preferred Language: Albanian Communication Ability: Effective Fold Skiver Required: No Beliefs That Will Affect Care: None Current Living Situation: Spouse Feels Safe at Home: Yes Assistive Devices: Glasses Review of Systems Review of Systems: As per HPI, all other systems reviewed and negative Physical Exam Physical Exam: GENERAL: Slightly anxious, comfortable, pleasant, slightly restless, no respiratory distress SKIN: Normal color, warm HEENT: Alopecia, pink palpebral conjunctivae, no ptosis, dry buccal mucosa NECK : Supple, no tenderness CHEST : CTA, no tenderness HEART : Bradycardic, no obvious murmurs ABDOMEN: Some distention, nontender EXTREMITIES : No LE swelling/tenderness, no other conspicuous deformities noted NEUROLOGIC : Coherent, no facial asymmetry, no other gross focality Results & Data Results & Data Vital Signs (Past 12 Hours) Vital Signs Temp Pulse Resp BP Pulse Ox O2 Del Method 02/14/23 03:59 54 L 02/14/23 03:59 Room Air 02/14/23 03:59 36.9 C 56 L 18 158/119 H 94 Room Air Laboratory Results Laboratory Results WBC 6.95 K/ul (4.8-10.8) 02/14/23 04:00 RBC 5.12 M/uL (4.70-6.10) 02/14/23 04:00 Hgb 16.2 g/dl (14.0-18.0) 02/14/23 04:00 Hct 43.1 % (42.0-52.0) 02/14/23 04:00 MCV 84.2 fL (80.0-100.0) 02/14/23 04:00 MCH 31.6 pg (25.0-34.0) 02/14/23 04:00 MCHC 37.6 g/dL (32.0-36.0) H 02/14/23 04:00 RDW Std Deviation 37.5 fL (36.4-46.3) 02/14/23 04:00 RDW Coeff of [place] 12.4 % (11.5-14.5) 02/14/23 04:00 Plt Count 201 K/uL (130-400) 02/14/23 04:00 MPV 9.1 fL (9.4-12.4) L 02/14/23 04:00 Immature Gran % (Auto) 0.7 % 02/14/23 04:00 Neut % (Auto) 62.5 % 02/14/23 04:00 Lymph % (Auto) 22.7 % 02/14/23 04:00 [place] % (Auto) 11.2 % 02/14/23 04:00 Eos % (Auto) 2.0 % 02/14/23 04:00 Baso % (Auto) 0.9 % 02/14/23 04:00 Neut # (Auto) 4.34 K/uL (1.40-6.50) 02/14/23 04:00 Lymph # (Auto) 1.58 K/uL (1.2-3.4) 02/14/23 04:00 [place] # (Auto) 0.78 K/uL (0.11-0.59) H 02/14/23 04:00 Eos # (Auto) 0.14 K/uL (0-0.50) 02/14/23 04:00 Baso # (Auto) 0.06 K/uL (0-0.2) 02/14/23 04:00 Immature Gran # (Auto) 0.05 K/uL (0.01-0.20) 02/14/23 04:00 PT 11.0 Seconds (9.0-12.0) 02/14/23 04:00 INR 1.0 (0.9-1.1) 02/14/23 04:00 APTT 26.8 Seconds (21.0-31.0) 02/14/23 04:00 PTT Ratio 1.0 02/14/23 04:00 Sodium 139 mmol/L (136-145) 02/14/23 04:00 Potassium 3.6 mmol/L (3.5-5.1) 02/14/23 04:00 Chloride 107 mmol/L (98-107) 02/14/23 04:00 Carbon Dioxide 26 mmol/L (21-32) 02/14/23 04:00 Anion Gap 6 (3-11) 02/14/23 04:00 BUN 21 mg/dl (6-23) 02/14/23 04:00 Creatinine 1.01 mg/dl (0.6-1.4) 02/14/23 04:00 Est Cr Clr Drug Dosing 78.5 ml/min 02/14/23 04:00 Est GFR ( Amer) 90.0 ml/min 02/14/23 04:00 Est GFR (Non-Af Amer) 77.7 ml/min 02/14/23 04:00 BUN/Creatinine Ratio 20.8 (10-20) H 02/14/23 04:00 Glucose 114 mg/dl (70-99(Fasting)) H 02/14/23 04:00 Calcium 9.3 mg/dl (8.6-10.3) 02/14/23 04:00 Total Bilirubin 0.6 mg/dl (0.2-1.0) 02/14/23 04:00 AST 26 U/L (13-39) 02/14/23 04:00 ALT 36 U/L (7-52) 02/14/23 04:00 Alkaline Phosphatase 69 U/L (34-104) 02/14/23 04:00 Troponin I High Sens 4.9 pg/ml (0-20) 02/14/23 04:00 Total Protein 6.5 gm/dl (6.0-8.3) 02/14/23 04:00 Albumin 4.5 gm/dl (3.4-5.0) 02/14/23 04:00 Globulin 2.0 gm/dl (2.5-4.0) L 02/14/23 04:00 Albumin/Globulin Ratio 2.3 (0.9-2) H 02/14/23 04:00 Lipase 21 U/L (11-82) 02/14/23 04:[address] head: No acute intracranial hemorrhage, no evidence of acute territorial infarction or other acute intracranial disease process. Chest x-ray as per my interpretation no congestion EKG as per my interpretation :Rate 55, sinus bradycardia, LAD, LAFB, no ischemia
[2023-02-14] MEDS ORDERED: NITROGLYCERIN SL 0.4 MG/TAB TAB SL PRN (05:55)
[2023-02-14] MEDS ORDERED: LORazepam 0.5 MG TAB PO PRN (05:55)
[2023-02-14] MEDS ORDERED: oxyCODONE HCL IR 5 MG TAB (IMMEDIATE RELEASE) PO PRN (05:55)
[2023-02-14] MEDS ORDERED: LACTATED RINGER'S 1,000 ML IV ONE (05:55)
[2023-02-14] MEDS ORDERED: MoRPHine SULFATE 4 MG/ML 1 ML CARP\\VIAL IV PRN (05:55)
[2023-02-14] MEDS ORDERED: PROMETHAZINE HCL 12.5 MG in SODIUM CHLORIDE 0.9% 50 ML IV PRN (05:55)
--- NOTE | 2023-02-14 06:38 | XRay Report ---
XR chest 1V portable CLINICAL HISTORY: Chest pain, nonspecific TECHNIQUE: Single frontal radiograph of the chest was obtained. Comparison: Comparison is made to chest radiograph 07/10/2022 FINDINGS: No lines and tubes are seen. The cardiomediastinal silhouette is normal. The lungs are clear. No evid ence of pleural effusion or pneumothorax. IMPRESSION: No acute chest disease. ACT 112: Negative or not required by law. Electronically signed by: Ramez Rudd M.D. 02/14/2023 6:37 AM
--- NOTE | 2023-02-14 07:11 | CT Scan Report ---
CT head/brain wo con CLINICAL HISTORY: meneses, htn Technique: Contiguous axial CT images of the head were acquired from the base of the skull to the stephanie fernando without intravenous contrast administration. Images were viewed in brain, subdural and bone [facility]. Automated dose lowering techniques and/or adjustment according to patient size were utilized for this exam. Comparison: None available at the time of this dictation. Findings: The ventricles, basal cisterns, and cerebral sulci are normal. There is no acute intracranial hemorrh age or evidence of acute territorial infarction. Neither mass effect, shift of the midline structures , nor abnormal extra-axial fluid collections are shown. Imaged portions of the paranasal sinuses and mastoid air cells are clear. The orbits appear normal. There are no acute fractures of the calvaria or scalp swelling. Impression: No acute intracranial hemorrhage, no evidence of acute territorial infarction or other acute intracra nial disease process. ACT 112: Negative or not required by law. Electronically signed by: Ramez Rudd M.D. 02/14/2023 7:10 AM
[2023-02-14 07:21] LABS: Magnesium 1.8 mg/dl (1.7-2.4)
[2023-02-14 07:27] LABS: Troponin I High Sensitivity 6.3 pg/ml (0-20)
[2023-02-14 07:49] LABS: Lyme Ab IgG w/WB Rflx Negative (Negative); Lyme Ab IgM w/WB Rflx Negative (Negative)
[2023-02-14] MEDS: ASPIRIN 81 MG ECTAB PO SCH (08:45)
[2023-02-14] MEDS: ENOXAPARIN INJ 40 MG/0.4 ML SYR SQ SCH (08:46)
[2023-02-14] MEDS: ATENOLOL 25 MG TABLET PO SCH (08:46)
[2023-02-14] MEDS: TAMSULOSIN HCL 0.4 MG CAP PO SCH (08:47)
[2023-02-14] MEDS: lamoTRIgine 100 MG TAB PO SCH ×2 (08:47→20:29)
[2023-02-14] MEDS: CEROVITE ADV FORMULA TAB PO SCH (08:47)
[2023-02-14] MEDS: lamoTRIgine 25 MG TAB PO SCH ×2 (08:48→20:29)
[2023-02-14 09:13] LABS: Estimated Average Glucose 82 mg/dl; Hemoglobin A1C 4.5 % (4.5-5.6)
[2023-02-14] MEDS: FINASTERIDE 5 MG TAB PO SCH (09:24)
[2023-02-14] MEDS: GABAPENTIN 300 MG CAP PO SCH ×3 (09:28→20:29)
--- NOTE | 2023-02-14 11:10 | Electrocardiogram Report ---
Test Reason : Blood Pressure : / mmHG Vent. Rate : 054 BPM Atrial Rate : 054 BPM P-R Int : 164 ms QRS Dur : 104 ms QT Int : 420 ms P-R-T Axes : 057 -16 006 degrees QTc Int : 398 ms Sinus bradycardia Otherwise normal ECG When compared with ECG of 20-JUL-2022 19:19, No significant change was found Confirmed by Nnamdi Nath ([id number]) on 02/14/2023 11:09:36 AM Referred By: REFERRED SELF Confirmed By:Nolan Nath
[2023-02-14] MEDS ORDERED: ACETAMINOPHEN 325 MG TAB PO PRN (12:33)
--- NOTE | 2023-02-14 16:28 | Communication Note ---
Date of Service: February 14, 2023 63-year-old male with PMH of HTN, TIA, complex partial seizure on lamotrigine, NAFLD, Lyme disease status post treatment, BPH, past tobacco abuse presented to the ED 02/14 with complaint of on and off left-sided chest pain without radiation/shortness of breath/nausea/warmth/palpitation. He declines any relieving or exacerbating factors. Patient denies any cough symptoms and reports being compliant with home medication. He reported that his blood pressure was elevated at home with SBP in 180s which is unusual for him as it is generally in 130s/80s per patient. He is being managed for the following: Chest pain, rule out ACS Uncontrolled hypertension Patient presents with chest pain, possibly from uncontrolled hypertension Troponin x 2 negative, EKG without acute ST or T changes. Echo with EF of 55 to 60%, grade 1 diastolic dysfunction, no regional wall motion abnormality. Exercise stress test with no inducible ischemia. Will monitor over telemetry, atenolol dose has been decreased to 25 mg daily due to bradycardia. Takes losartan 50 mg daily at home, will make it twice daily. Will add low-dose hydrochlorothiazide. Plan of care has been discussed with the patient, monitor over telemetry overnight, EKG with chest pain. EKG in AM. Possible discharge tomorrow. Patient with no chest pain overnight and in the morning. Other chronic medical conditions: hx TIA complex partial seizure as per records, stable on regimen, last seizure 7-8 years ago per patient hx NAFLD Lyme disease status post treatment hx BPH, stable on regimen Hyperglycemia rule out DM past tobacco abuse DVT prophylaxis. Lovenox subcu Full code Patient Ms. Marine Chilel, contact #[phone]. On examination, patient on room air, heart/lung/abdomen examination fairly WNL. For detailed information on the patient, refer to today's H&P note.
[2023-02-14] MEDS: hydroCHLOROthiazide 25 MG TAB PO SCH (17:24)
[2023-02-15] MEDS ORDERED: LOSARTAN POTASSIUM 50 MG TAB PO SCH ×3 (00:35→09:00)
[2023-02-15] MEDS ORDERED: PANTOprazole 40 MG TAB PO SCH (06:30)
[2023-02-15 06:41] LABS: Basophils # (auto) 0.05 K/uL (0-0.2); Basophils % (auto) 0.7 %; Eosinophils # (auto) 0.18 K/uL (0-0.50); Eosinophils % (auto) 2.4 %; Hematocrit (blood only) 46.6 % (42.0-52.0); Immature Granulocytes # (auto) 0.04 K/uL (0.01-0.20); Immature Granulocytes % (auto) 0.5 %; Lymphocytes # (auto) 1.76 K/uL (1.2-3.4); Mean Corpuscular Hgb Conc 36.5 g/dL (32.0-36.0); Mean Platelet Volume 8.9 fL (9.4-12.4); Monocytes # (auto) 0.75 K/uL (0.11-0.59); Monocytes % (auto) 9.8 %; Neutrophils # (auto) 4.87 K/uL (1.40-6.50); Neutrophils % (auto) 63.6 %; Platelet Count 199 K/uL (130-400); RDW Coefficient of Variation 12.4 % (11.5-14.5); RDW Standard Deviation 38.1 fL (36.4-46.3); Red Blood Count 5.48 M/uL (4.70-6.10); White Blood Count 7.65 K/ul (4.8-10.8)
[2023-02-15 06:58] LABS: BUN Creatinine Ratio 17.3 (10-20); Calcium 9.6 mg/dl (8.6-10.3); Est GFR (African American) 81.2 ml/min; Est GFR (Non-African American) 70.1 ml/min; Magnesium 1.8 mg/dl (1.7-2.4); Phosphorus 3.3 mg/dl (2.5-4.9); Potassium 4.1 mmol/L (3.5-5.1)
--- NOTE | 2023-02-15 08:28 | Electrocardiogram Report ---
Test Reason : Blood Pressure : / mmHG Vent. Rate : 051 BPM Atrial Rate : 051 BPM P-R Int : 172 ms QRS Dur : 094 ms QT Int : 454 ms P-R-T Axes : 046 -09 005 degrees QTc Int : 418 ms Sinus bradycardia Possible Left atrial enlargement Borderline ECG When compared with ECG of 14-FEB-2023 03:58, No significant change was found Confirmed by Nnamdi Nath ([id number]) on 02/15/2023 8:27:42 AM Referred By: REFERRED SELF Confirmed By:Nolan Nath
[2023-02-15] MEDS: CEROVITE ADV FORMULA TAB PO SCH (08:54)
[2023-02-15] MEDS: lamoTRIgine 100 MG TAB PO SCH (08:54)
[2023-02-15] MEDS: lamoTRIgine 25 MG TAB PO SCH (08:54)
[2023-02-15] MEDS: FINASTERIDE 5 MG TAB PO SCH (08:54)
[2023-02-15] MEDS: GABAPENTIN 300 MG CAP PO SCH (08:54)
[2023-02-15] MEDS: TAMSULOSIN HCL 0.4 MG CAP PO SCH (08:55)
[2023-02-15] MEDS: ASPIRIN 81 MG ECTAB PO SCH (08:55)
[2023-02-15] MEDS: ATENOLOL 25 MG TABLET PO SCH (08:55)
[2023-02-15] MEDS: hydroCHLOROthiazide 25 MG TAB PO SCH (08:55)
[2023-02-15] MEDS: ENOXAPARIN INJ 40 MG/0.4 ML SYR SQ SCH (08:56)
--- NOTE | 2023-02-15 12:02 | Discharge Summary ---
Date of Service February 15, 2023 Admission HPI Per Admitting Provider History obtained from patient, family, and records. Medical history significant for HTN, TIA, complex partial seizure as per records, NAFLD, Lyme disease status post treatment, BPH, past tobacco abuse. Last confinement April 2018 for chest pain. No inducible ischemia on exercise stress test. 2 days ago, patient noted achy left-sided chest pain without radiation or shortness of breath symptoms. No cough symptoms. Patient compliant with home medications. No unusual stress. Achy headache symptoms. SBP 180s at home which is unusual for him as per . EMS called to patient's home. SBP noted to be 170s. Patient given aspirin. Patient currently chest pain-free. Medical History as above Surgical History : Tonsillectomy Family History : Melanoma, prostate cancer, DM, stroke Personal/Social history : Non-smoker, no EtOH intake, retired [employer] employee Admission Exam Per Admitting Provider GENERAL: Slightly anxious, comfortable, pleasant, slightly restless, no respiratory distress SKIN: Normal color, warm HEENT: Alopecia, pink palpebral conjunctivae, no ptosis, dry buccal mucosa NECK : Supple, no tenderness CHEST : CTA, no tenderness HEART : Bradycardic, no obvious murmurs ABDOMEN: Some distention, nontender EXTREMITIES : No LE swelling/tenderness, no other conspicuous deformities noted NEUROLOGIC : Coherent, no facial asymmetry, no other gross focality Principal Diagnosis Chest pain, ruled out ACS Uncontrolled hypertension Discharge Exam GENERAL: Alert and oriented x3. NAD, on RA. HEENT: No pallor, no icterus. Pupils equal, round and reactive to light. Oral mucosa moist. NECK: No JVD, no neck masses. HEART: S1 and S2 heard. Regular rate and rhythm/bradycardia. No murmur, no gallop. RESPIRATORY SYSTEM: Normal AP diameter. No accessory muscle use. No wheezing, no crackles. ABDOMEN: Soft, bowel sounds present, nontender, no distention. CENTRAL NERVOUS SYSTEM: No facial droop. Speech is clear. Obeys simple commands. Moves extremities. EXTREMITIES: No edema, no erythema seen. Discharge Data Allergies Allergy/AdvReac Type Severity Reaction Status Date / Time brompheniramine AdvReac Intermediate HYPER--DIMETAPP Verified 11/19/22 10:50 COLD MEDICINE Consultations 02/14/23 05:15 ED Decision to Admit Stat Ordered Studies 02/14/23 05:49 CT head/brain wo con Stat Hospital Course (1) Chest pain: Plan 63-year-old male with PMH of HTN, TIA, complex partial seizure on lamotrigine, NAFLD, Lyme disease status post treatment, BPH, past tobacco abuse presented to the ED 02/14 with complaint of on and off left-sided chest pain without radiation/shortness of breath/nausea/warmth/palpitation. He declines any reliev ing or exacerbating factors. Patient denies any cough symptoms and reports being compliant with home medication. He reported that his blood pressure was elevated at home with SBP in 180s which is unusual for him as it is generally in 130s/80s per patient. He was managed for the following: Chest pain, rule out ACS Uncontrolled hypertension Patient presents with chest pain, possibly from uncontrolled hypertension Troponin x 2 negative, EKG without acute ST or T changes. Follow-up EKG with no acute ST or T changes. Echo with EF of 55 to 60%, grade 1 diastolic dysfunction, no regional wall motion abnormality. Exercise stress test with no inducible ischemia. Will monitor over telemetry, atenolol dose has been decreased to 25 mg daily due to bradycardia. Takes losartan 50 mg daily at home, made it twice daily. Added low-dose hydrochlorothiazide. Plan of care has been discussed with the patient, he voiced understanding. Blood pressure has been getting better, patient denies any further chest pain while in the hospital. Patient will be discharged, close follow-up with PCP in a week time upon discharge with labs. Other chronic medical conditions: hx TIA complex partial seizure as per records, stable on regimen, last seizure 7-8 years ago per patient hx NAFLD Lyme disease status post treatment hx BPH, stable on regimen Hyperglycemia rule out DM past tobacco abuse DVT prophylaxis. Lovenox subcu Full code Patient Ms. Marine Chilel, contact #[phone]. Patient being discharged home with following instruction at the point of discharge: Follow-up with your primary care physician within a week time and likely you will need labs CBC/CMP/magnesium/phosphorus. Maintain heart healthy diet/low-sodium diet [less than 2 g/day]. Your blood pressure medication has been optimized. Your atenolol has been decreased to 25 mg daily from 50 mg daily. Your losartan has been increased from 50 mg daily to 50 mg twice a day. Low-dose hydrochlorothiazide has been added to help with your blood pressure management. Recommend to measure your blood pressure twice a day and maintain a log to take to your primary care physician for further evaluation/necessary dose adjustment of your blood pressure medications. For your BLE radicular pain and history of disc herniation, continue to follow- up with your orthospine. Please make sure that you are able to get your medications today by calling your pharmacy before you leave the hospital so that your treatment continuity is not broken. Home Health Attestation I certify that this patient is under my care and that I, or a physicians under water assistant working with me, had a face to-face encounter that meets the home health [id number] encounter requirements with this patient. The encounter with the patient was in whole, or in part, for the following medical condition, which is the primary reason for home health care (list medical condition): I certify that, based on my findings, the following services are medically necessary home health services: My clinical findings support the need for the above services because: Further, I certify that my clinical findings support that this patient is homebound (i.e. absences from home require considerable and taxing effort and are for medical reasons or restorationist services or infrequently or of short duration when for other reasons) because: Certification for Home Health Services: Based on the above findings, I certify that this patient is confined to the home and needs intermittent senior care care, physical therapy and/or speech therapy or continues to need occupational therapy. The patient is under my care, and I have initiated the establishment of the plan of care. This patient will be followed by a physician who will periodically review the plan of care. Total Time Total Time Spent Total Time Spent (In Minutes): 45 Discharge Plan Discharge Items Patient Disposition: Home - Self-Care Reason For Visit: CP Discharge Diagnosis: Chest pain, ruled out ACS Uncontrolled hypertension Activity: Resume your previous activity Non-emergency contact: Primary Care Provider Call non-emergency contact if: you have any medication questions, your symptoms worsen and your temperature is above 101 Follow-up/Referrals: Edmond Rawls MD [Primary Care Provider] - (Date & Time 02/21/2023 10:40 AM Provider Edmond Rawls MD Department [facility] ) Diet: Heart Healthy and Low Sodium (2gm) Addtl Attending Provider Instructions: Follow-up with your primary care physician within a week time and likely you will need labs CBC/CMP/magnesium/phosphorus. Maintain heart healthy diet/low-sodium diet [less than 2 g/day]. Your blood pressure medication has been optimized. Your atenolol has been decreased to 25 mg daily from 50 mg daily. Your losartan has been increased from 50 mg daily to 50 mg twice a day. Low-dose hydrochlorothiazide has been added to help with your blood pressure management. Recommend to measure your blood pressure twice a day and maintain a log to take to your primary care physician for further evaluation/necessary dose adjustment of your blood pressure medications. For your BLE radicular pain and history of disc herniation, continue to follow- up with your orthospine. Please make sure that you are able to get your medications today by calling your pharmacy before you leave the hospital so that your treatment continuity is not broken. Pending Studies at Discharge: No Stand-Alone Forms: My [facility] [employer], Smoking Cessation Medications and DC Order Prescriptions: New atenolol 25 mg Tablet 25 mg PO DAILY Qty: 30 0RF losartan 50 mg Tablet 50 mg PO BID Qty: 60 0RF hydrochlorothiazide 25 mg Tablet 12.5 mg PO QAM Qty: 15 0RF Continued lamotrigine 25 mg tablet 25 mg PO BID Qty: 180 1RF Rx Instructions: TOTAL DOSE 225 MG--TAKES WITH 200 MG TAB. lamotrigine 200 mg tablet 200 mg PO BID 90 Days Qty: 180 1RF Rx Instructions: TOTAL DOSE 225 MG--TAKES WITH 25 MG TAB. calcium carbonate-vitamin D3 [Calcium 500 + D] 500 mg(1,250mg) -400 unit Tablet 1 tab PO DAILY aspirin 81 mg tablet,delayed release (DR/EC) 81 mg PO DAILY tamsulosin 0.4 mg capsule 0.4 mg PO QAM pantoprazole 40 mg tablet,delayed release (DR/EC) 40 mg PO DAILYBB Men's One Daily Tablet 1 tab PO DAILY gabapentin 300 mg capsule 300 mg PO TID finasteride 5 mg tablet 5 mg PO DAILY Discontinued atenolol 100 mg tablet 50 mg PO DAILY losartan 25 mg tablet 50 mg PO DAILY Discharge Orders: Discharge Order (Routine); Ordered 02/15/23 Ordered By: Cody Lazo Admission Data Admit Date/Time: 02/14/23 05:53 Attending Provider: Cody Lazo Admit Provider: Allen Darby Primary Care Provider: Edmond Rawls Other Providers: Allen Darby
== END 2023-02-15 14:45 | disposition home or self-care (01) ==
LOC: ED 03:52 → EDINP 03:52 → SUATTDRO 05:53 → EDINP 06:36 → 2S 15:31